=== PATIENT | female | born 1965 | race Caucasian/White ===

== ENCOUNTER 2018-03-19 15:28 | Emergency (ER) | payer OTHER ==
[2018-03-19] MEDS ORDERED: ONDANSETRON ODT 4 MG TAB ONE (15:53)
[2018-03-19] MEDS ORDERED: MORPHINE SULFATE 5 MG/ML VIAL ONE (15:54)
== END 2018-03-19 16:26 | disposition home or self-care (01) ==
LOC: EDH 15:28
DX: S42.291A Other displaced fracture of upper end of right humerus, initial encounter for closed fracture (principal); E11.9 Type 2 diabetes mellitus without complications; I10 Essential (primary) hypertension; Z88.0 Allergy status to penicillin; Z98.51 Tubal ligation status; W01.0XXA Fall on same level from slipping, tripping and stumbling without subsequent striking against object, initial encounter; Y93.01 Activity, walking, marching and hiking; Y92.89 Other specified places as the place of occurrence of the external cause; Y99.8 Other external cause status
CPT/HCPCS: 73030; 96372; 99283; J2270

== ENCOUNTER 2018-03-21 20:36 | Emergency (ER) | payer OTHER ==
[2018-03-21] MEDS ORDERED: HYDROCODONE/ACETAMINOPHEN 10/325 MG TAB ONE (22:04)
== END 2018-03-21 22:41 | disposition home or self-care (01) ==
LOC: EDH 20:36
DX: S42.201D Unspecified fracture of upper end of right humerus, subsequent encounter for fracture with routine healing (principal); I10 Essential (primary) hypertension; E11.9 Type 2 diabetes mellitus without complications; Z98.51 Tubal ligation status; Z88.0 Allergy status to penicillin; X58.XXXD Exposure to other specified factors, subsequent encounter